=== PATIENT | female | born 1960 | race Asian ===

== ENCOUNTER 2016-09-25 05:55 | Inpatient (IN) | payer OTHER ==
[~2016-09-25] VITALS: Ht 149.9 cm; Wt 77.7 kg
[~2016-09-25 05:55] MED LIST: ASPI81 PO; FLUT16H NASAL; FentaNYL CITRATE-PF 100 MCG/2 ML VIAL IVP ONE; IBUP-1681 PO; KETAMINE HCL 50 MG/ML 10 ML VIAL IVP ONE; LORA10TA7 PO; MIDAZOLAM HCL 2 MG/2 ML VIAL IVP ONE; PROPOFOL 1% 20 ML VIAL IVP ONE; SIMV-259 PO; SUCCINYLCHOLINE CHLORIDE 20 MG/ML 10 ML VIAL IVP ONE
[2016-09-25] MEDS ORDERED: RINGERS SOLUTION,LACTATED 1,000 ML IV ONE ×3 (06:00→07:11)
[2016-09-25] MEDS ORDERED: BUPIVACAINE LIPOSOME/PF 1.3%-13.3MG/ML SUSPENSION 20 ML VIAL INJ ONE (06:45)
[2016-09-25] MEDS ORDERED: HYDROmorphone 2 MG/ML SYRINGE IVP PRN (06:45)
[2016-09-25] MEDS ORDERED: FentaNYL CITRATE-PF 100 MCG/2 ML VIAL IVP PRN (06:45)
[2016-09-25] MEDS ORDERED: TRANEXAMIC ACID 1,000 MG in DEXTROSE 5%-WATER 50 ML IV ONE (06:45)
[2016-09-25] MEDS ORDERED: ZOLPIDEM TARTRATE 5 MG TABLET PO PRN (06:45)
[2016-09-25] MEDS ORDERED: PROMETHAZINE HCL 25 MG/ML VIAL IM PRN (06:45)
[2016-09-25] MEDS ORDERED: CELECOXIB 200 MG CAPSULE PO ONE (06:45)
[2016-09-25] MEDS ORDERED: MEPERIDINE-PF 25 MG/ML SYRINGE IVP PRN (06:45)
[2016-09-25] MEDS: ACETAMINOPHEN 1000 MG/ISO-OSM 100 ML IV SCH ×3 (07:15→18:44)
[2016-09-25] MEDS ORDERED: SODIUM CHLORIDE 0.9% 10 ML ONE (07:45)
[2016-09-25] MEDS ORDERED: BACITRACIN 50,000 UNITS/VIAL ONE (07:46)
[2016-09-25] MEDS ORDERED: SODIUM CHLORIDE 0.9% 100 ML ONE (07:50)
[2016-09-25] MEDS ORDERED: SODIUM CHLORIDE 0.9% 1,000 ML IV ONE (08:58)
[2016-09-25] MEDS ORDERED: MAG HYDROX/AL HYDROX/SIMETH 30 ML SUSP UDCUP PO PRN (09:45)
[2016-09-25] MEDS ORDERED: ONDANSETRON HCL 4 MG/2 ML VIAL IVP PRN (09:45)
[2016-09-25] MEDS ORDERED: BISACODYL 10 MG RECTAL RECTAL SUPPOSITORY PR PRN (09:45)
[2016-09-25] MEDS ORDERED: DiphenhydrAMINE HCL 50 MG/ML VIAL IVP PRN (09:45)
[2016-09-25] MEDS ORDERED: BENZOCAINE/MENTHOL LOZENGE [8 LOZENGES/PACKET] PO PRN (09:45)
[2016-09-25] MEDS: ONDANSETRON HCL 4 MG/2 ML VIAL IVP PRN (11:04)
[2016-09-25] MEDS: OXYGEN THERAPY IH SCH ×3 (11:13→20:00)
[2016-09-25 11:22] VITALS: BP 144/76
[2016-09-25] MEDS: HYDROmorphone 2 MG/ML SYRINGE IVP PRN ×2 (13:05→17:21)
[2016-09-25] MEDS: CeFAZolin 1 GM/DEXTROSE 50 ML IV SCH ×2 (15:21→23:17)
[2016-09-25 15:23] VITALS: BP 140/73
[2016-09-25] MEDS: SODIUM CHLORIDE 0.45% 1,000 ML IV SCH ×2 (17:21→22:56)
[2016-09-25 19:25] VITALS: BP 125/70
[2016-09-25] MEDS: DOCUSATE SODIUM 100 MG CAPSULE PO SCH (20:33)
[2016-09-25] MEDS: SIMVASTATIN 10 MG TABLET PO SCH (20:33)
[2016-09-25 23:20] VITALS: BP 127/61
[2016-09-26] MEDS: ACETAMINOPHEN 1000 MG/ISO-OSM 100 ML IV SCH ×2 (01:00→06:45)
[2016-09-26 05:36] VITALS: BP 135/79
[2016-09-26 06:46] LABS: BASOPHILS % (AUTO) 0.2 % (0.0-2.0); EOSINOPHILS % (AUTO) 0 % (1.0-6.0); HEMATOCRIT 36.6 % (36-46); HEMOGLOBIN 12.1 g/dL (12.0-16.0); LYMPHOCYTES # (AUTO) 1.5 K/uL (1.0-4.8); LYMPHOCYTES % (AUTO) 12.6 % (22.0-44.0); MEAN CORPUSCULAR HEMOGLOBIN 30.6 pg (26.0-34.0); MEAN CORPUSCULAR VOLUME 93 fL (80-100); MONOCYTES # (AUTO) 1.2 K/uL (0.1-1.0); MONOCYTES % (AUTO) 10.3 % (2.0-9.0); NEUTROPHILS # (AUTO) 9.1 K/uL (1.8-7.7); NEUTROPHILS % (AUTO) 76.9 % (40.0-70.0); PLATELET COUNT (AUTO) 223 K/uL (150-450); RED BLOOD CELL COUNT(AUTO) 3.95 MIL/uL (4.00-5.20); RED CELL DISTRIBUTION WIDTH 13.5 % (11.5-14.5); WHITE BLOOD COUNT (AUTO) 11.8 K/uL (4.5-11.0)
[2016-09-26 06:49] LABS: ANION GAP 6 mmol/L (8-16); CALCIUM, TOTAL 8.4 mg/dL (8.8-10.5); CARBON DIOXIDE 30 mmol/L (22-29); CHLORIDE 106 mmol/L (98-107); CREATININE 0.54 mg/dL (0.60-1.30); GLOMERULAR FILTR. RATE CALC > 60 mL/min (>60); POTASSIUM 3.4 mmol/L (3.5-5.1); SODIUM SERUM 142 mmol/L (136-145); UREA NITROGEN, BLOOD 7 mg/dL (7-18)
[2016-09-26 07:39] VITALS: BP 144/78
[2016-09-26] MEDS: OXYGEN THERAPY IH SCH ×4 (08:00→20:00)
[2016-09-26] MEDS: OxyCODONE HCL/ACETAMINOPHEN 10-325 MG TABLET PO PRN ×4 (08:34→23:56)
[2016-09-26] MEDS: FLUTICASONE PROPIONATE 50 MCG/SPRAY 16 GM NASAL SPRAY NASAL SCH (08:34)
[2016-09-26] MEDS: DOCUSATE SODIUM 100 MG CAPSULE PO SCH ×2 (08:34→20:54)
[2016-09-26] MEDS: RIVAROXABAN 10 MG TABLET PO SCH ×2 (08:50→17:58)
[2016-09-26] MEDS: CYCLOBENZAPRINE HCL 10 MG TABLET PO PRN ×2 (09:53→20:55)
[2016-09-26] MEDS: HYDROmorphone 2 MG/ML SYRINGE IVP PRN (09:53)
[2016-09-26] MEDS: MUPIROCIN CALCIUM 2% 22 GM OINTMENT NASAL SCH ×2 (11:47→20:55)
[2016-09-26 12:05] VITALS: BP 124/64
[2016-09-26] MEDS: SODIUM CHLORIDE 0.45% 1,000 ML IV SCH (12:16)
[2016-09-26] MEDS ORDERED: OxyCODONE HCL/ACETAMINOPHEN 10-325 MG TABLET PO PRN (13:00)
[2016-09-26 17:00] VITALS: BP 135/67
[2016-09-26 20:00] VITALS: BP 127/65
[2016-09-26] MEDS ORDERED: POTASSIUM CHLORIDE 20 MEQ ER TABLET PO ONE (20:30)
[2016-09-26] MEDS: SIMVASTATIN 10 MG TABLET PO SCH (20:54)
[2016-09-26 23:56] VITALS: BP 144/66
[2016-09-27 05:43] VITALS: BP 118/70
[2016-09-27] MEDS: OxyCODONE HCL/ACETAMINOPHEN 10-325 MG TABLET PO PRN ×3 (07:47→20:14)
[2016-09-27 07:50] VITALS: BP 143/65
[2016-09-27] MEDS: OXYGEN THERAPY IH SCH ×3 (07:56→20:00)
[2016-09-27] MEDS ORDERED: MAGNESIUM HYDROXIDE SUSPENSION 30 ML UDCUP PO ONE (08:15)
[2016-09-27 08:18] LABS: BASOPHILS % (AUTO) 0.5 % (0.0-2.0); EOSINOPHILS % (AUTO) 0.2 % (1.0-6.0); HEMOGLOBIN 11.9 g/dL (12.0-16.0); LYMPHOCYTES # (AUTO) 2.2 K/uL (1.0-4.8); LYMPHOCYTES % (AUTO) 19.9 % (22.0-44.0); MEAN CORPUSCULAR HEMOGLOBIN 30.5 pg (26.0-34.0); MEAN CORPUSCULAR HGB CONC 33.1 G/dL (31.0-37.0); MEAN CORPUSCULAR VOLUME 92 fL (80-100); MONOCYTES # (AUTO) 1.1 K/uL (0.1-1.0); MONOCYTES % (AUTO) 9.6 % (2.0-9.0); NEUTROPHILS # (AUTO) 7.7 K/uL (1.8-7.7); NEUTROPHILS % (AUTO) 69.8 % (40.0-70.0); PLATELET COUNT (AUTO) 233 K/uL (150-450); RED BLOOD CELL COUNT(AUTO) 3.91 MIL/uL (4.00-5.20); RED CELL DISTRIBUTION WIDTH 13.6 % (11.5-14.5)
[2016-09-27] MEDS: FLUTICASONE PROPIONATE 50 MCG/SPRAY 16 GM NASAL SPRAY NASAL SCH (08:56)
[2016-09-27] MEDS: MUPIROCIN CALCIUM 2% 22 GM OINTMENT NASAL SCH ×2 (08:56→20:16)
[2016-09-27] MEDS: DOCUSATE SODIUM 100 MG CAPSULE PO SCH ×2 (08:56→20:14)
[2016-09-27 11:50] VITALS: BP 135/78
[2016-09-27] MEDS ORDERED: LACTULOSE 20 GM/30 ML SOLUTION UDCUP PO ONE (14:15)
[2016-09-27 15:14] VITALS: BP 131/85
[2016-09-27] MEDS: RIVAROXABAN 10 MG TABLET PO SCH (17:43)
[2016-09-27 19:35] VITALS: BP 133/61
[2016-09-27] MEDS: SIMVASTATIN 10 MG TABLET PO SCH (20:13)
[2016-09-27] MEDS: CYCLOBENZAPRINE HCL 10 MG TABLET PO PRN (20:14)
[2016-09-28 04:17] VITALS: BP 121/76
[2016-09-28] MEDS: ONDANSETRON HCL 4 MG/2 ML VIAL IVP PRN (04:55)
[2016-09-28] MEDS: OxyCODONE HCL/ACETAMINOPHEN 10-325 MG TABLET PO PRN ×2 (05:00→08:26)
[2016-09-28 06:35] LABS: BASOPHILS # (AUTO) 0.03 K/uL (0.00-0.20); BASOPHILS % (AUTO) 0.4 % (0.0-2.0); EOSINOPHILS # (AUTO) 0.08 K/uL (0.00-0.70); EOSINOPHILS % (AUTO) 0.99 % (1.0-6.0); HEMATOCRIT 33.4 % (36-46); LYMPHOCYTES # (AUTO) 1.6 K/uL (1.0-4.8); LYMPHOCYTES % (AUTO) 19.2 % (22.0-44.0); MEAN CORPUSCULAR HEMOGLOBIN 30.4 pg (26.0-34.0); MEAN CORPUSCULAR VOLUME 92 fL (80-100); MONOCYTES # (AUTO) 0.8 K/uL (0.1-1.0); MONOCYTES % (AUTO) 9.5 % (2.0-9.0); NEUTROPHILS % (AUTO) 69.9 % (40.0-70.0); PLATELET COUNT (AUTO) 208 K/uL (150-450); RED BLOOD CELL COUNT(AUTO) 3.63 MIL/uL (4.00-5.20); RED CELL DISTRIBUTION WIDTH 13.1 % (11.5-14.5); WHITE BLOOD COUNT (AUTO) 8.6 K/uL (4.5-11.0)
[2016-09-28 07:48] VITALS: BP 124/60
[2016-09-28] MEDS: OXYGEN THERAPY IH SCH (08:00)
[2016-09-28] MEDS: MUPIROCIN CALCIUM 2% 22 GM OINTMENT NASAL SCH (08:25)
[2016-09-28] MEDS: FLUTICASONE PROPIONATE 50 MCG/SPRAY 16 GM NASAL SPRAY NASAL SCH (08:25)
[2016-09-28] MEDS: DOCUSATE SODIUM 100 MG CAPSULE PO SCH (08:26)
[2016-09-28] MEDS ORDERED: PERCT PO (09:56)
[2016-09-28] MEDS ORDERED: RIVA10 PO (09:57)
[2016-09-28 12:01] VITALS: BP 108/66
== END 2016-09-28 14:30 | disposition home health service (06) | DRG 302 ==
LOC: 4E 05:55
PROVIDERS: ADMIT Orthopaedic Surgery; ATTEND Orthopaedic Surgery
PROC: 0SRC0J9 Replacement of Right Knee Joint with Synthetic Substitute, Cemented, Open Approach (ICD-10-PCS; principal; 2016-09-25 07:30)
DX: M17.11 Unilateral primary osteoarthritis, right knee (principal); E78.5 Hyperlipidemia, unspecified; M24.561 Contracture, right knee; M21.061 Valgus deformity, not elsewhere classified, right knee; E87.6 Hypokalemia; Z79.82 Long term (current) use of aspirin; Z79.899 Other long term (current) drug therapy; Z82.49 Family history of ischemic heart disease and other diseases of the circulatory system
CPT/HCPCS: 87081; 88300; 97110; 97116; 97161; 97165; 97530; 97535; C9290; G0238; J0131; J0330; J0690; J1170; J2250; J2405; J2550; J2704; J3010; J3490; J7030; J7050; J7060; J7120